=== PATIENT | male | born 1940 | race Caucasian/White ===

== ENCOUNTER 2018-01-30 14:49 | Observation (INO) | payer MEDICARE, BC ==
[2018-01-30 15:38] LABS: #Lymphocytes 0.9 thou/uL (1.20-3.40); #Monocytes 0.4 thou/uL (0.11-0.59); #Neutrophils 3.9 thou/uL (1.40-6.50); %Basophils 0.4 % (0.0-1.0); %Eosinophils 0.7 % (0.0-10.0); %Lymphocytes 17.2 % (21.0-51.0); %Monocytes 7.6 % (0.0-10.0); %Neutrophils 74.2 % (42.0-75.0); Hemoglobin 14.2 g/dL (14.0-18.0); Mean Corpuscular HGB CONC 33.6 g/dL (32.0-36.0); Mean Corpuscular Hemoglobin 31.7 pg (27.0-31.0); Mean Corpuscular Volume 94.2 fL (78.0-98.0); Mean Platelet Volume 8.7 fL (7.4-10.4); Platelet Count 218 thou/uL (130-400); Red Blood Cell (RBC) Count 4.48 mill/uL (4.70-6.10); White Blood Cell (WBC) Count 5.3 thou/uL (4.8-10.8)
[2018-01-30 15:58] LABS: Anion Gap 11 mmol/L (10-20); BUN (Urea Nitrogen) 24 mg/dL (8.4-25.7); Calc. Creatinine Clearance 0 mL/min (70-130); Calcium 9.5 mg/dL (7.8-10.44); Carbon Dioxide 24 mmol/L (23-31); Chloride 110 mmol/L (98-107); Estimated GFR-MDRD 49; Glucose 97 mg/dL (83-110); Potassium 3.9 mmol/L (3.5-5.1); Sodium 141 mmol/L (136-145)
[2018-01-30 18:18] LABS: INR-International Normal Ratio 2.4; Prothrombin Time 25.8 SEC (12.0-14.7)
[2018-01-30] MEDS ORDERED: Pantoprazole 40 MG VIAL ONE (20:06)
[2018-01-30] MEDS ORDERED: Acetaminophen 325 MG TAB PO PRN (20:48)
[2018-01-30] MEDS ORDERED: Ondansetron HCl/PF 4 MG/2 ML Vial IVP PRN (20:48)
[2018-01-30] MEDS ORDERED: HYDROcodone/Acetaminophen 10/325 mg Tablet PO PRN (20:49)
[2018-01-30] MEDS: Sodium Chloride 0.9% 1,000 ML IV SCH (23:03)
[2018-01-30] MEDS: Pantoprazole 80 MG in Sodium Chloride 0.9% 100 ML IVPB SCH (23:08)
[2018-01-31 04:51] VITALS: BMI 23.0
--- NOTE | 2018-01-31 06:11 | HP ---
CODE STATUS: Patient is full code. PRIMARY CARE PHYSICIAN: Dr. Guadalupe. CHIEF COMPLAINT: "I saw some blood in my stool." HISTORY OF PRESENT ILLNESS: This is a 77-year-old male patient with past medical history of metallic aortic valve, patient on chronic anticoagulation with Coumadin for that reason, also liver and kidne y cyst. The patient also has a history of major abdominal bleed following trauma. The patient came to the hospital after noticing blood in the stools for the past 3 days. The patient reported that it was a significant amount, no clear triggers, no alleviating factors. The patient has last colonosco py a long time ago. The patient's chairman & co founder is Dr. Clemens. Symptoms were reported as moderate to s evere. REVIEW OF SYSTEMS: CONSTITUTIONAL: No fever, no chills. The patient reported generalized weakness. RESPIRATORY: No c ough, no sputum production, shortness of breath. CARDIOVASCULAR: No chest pain, palpitations, shortness of breath. GASTROINTESTINAL: The patient has bloody stools, no nausea, no vomiting, no diarrhea or abdominal pa in. HIDE SELECTOR: No dizziness, headache or feeling lightheaded. GENITOURINARY: No burning with urination. EXTREMITIES: No leg swelling. All other systems reviewed were negative except for findings mentioned above. PAST MEDICAL HISTORY: Positive for liver and kidney disease. Metallic aortic valve replacement, on chronic anticoagulation on Coumadin with therapeutic INR, abdominal bleed following trauma, hernia, e nlarged prostate. PAST SURGICAL HISTORY: Aortic mechanical valve replacement. PSYCHIATRIC HISTORY: No psych history. SOCIAL HISTORY: No alcohol, no drugs. No smoking history. Lives at home. ALLERGIES: No known drug allergies. REPORTED MEDICATIONS: Nifedipine, allopurinol, warfarin. PHYSICAL EXAMINATION: VITAL SIGNS: On presentation, blood pressure 150/82, with a heart rate of 84, respiratory rate was 1 7, temperature 98.3, oxygen saturation 93 on room air. GENERAL: The patient is alert, oriented, no acute distress. HEENT: Normocephalic, conjunctivae. Moist oral mucosa. Eyes; anicteric. NECK: No JVD. RESPIRATORY: Bilateral air entry. No rales, no wheezing. Symmetric expansion. CARDIOVASCULAR: Normal rate, regular rhythm, no murmurs, no gallop, no edema. ABDOMEN: Soft, normal bowel sounds. MUSCULOSKELETAL: Baseline range of motion and strength. No tenderness. SKIN: Warm and intact. No pallor, no rash, no redness. NEUROLOGIC: Baseline sensorium. No evidence of any new focal weakness. Baseline speech. Cranial n erves, sensory intact. PSYCHIATRIC: The patient is in a good mood. No anxiety. Oriented, normal judgment. EKG was reviewed and discussed with the performing physician from here. The patient has normal sinus rhythm with a rate of 77, no evidence of any acute ischemic changes, left anterior fascicular block. LABORATORY DATA: Reviewed. The patient has a white count of 5.3, hemoglobin 14.2. Repeat hemoglobi n 13, MCV 94, the platelet count was 218, PT 25.8, INR 2.4, sodium 141, potassium 3.9, chloride 110, carbon dioxide was 24, anion gap 11, BUN 24, creatinine 1.41. In previous admissions, the patient gregory d a creatinine of 1.15, GFR 49, glucose 97, calcium 9.5. ASSESSMENT AND PLAN: The patient will be placed in the hospital for the following medical problems. 1. Lower gastrointestinal bleeding, in a patient with high risk for complications given the history of chronic anticoagulation and ability to stop anticoagulation given the patient having a metallic c prosthetic valve in the aortic valve. We will monitor hemoglobin, Protonix has been given, follow wi th GI that has been consulted. 2. Acute blood loss anemia, the patient has a hemoglobin for 14-13. This is minimal, we will contin ue to monitor, no evidence of any hemodynamic instability. 3. Chronic anticoagulation due to metallic valve, INR was 2.4, supratherapeutic. Once GI bleeding i s fixed, we will need to adjust dosage of Coumadin to keep INR from 2.5-3.5. 4. Acute kidney injury. The patient has creatinine 1.4, on previous admission was 1.1, will hydrate , will monitor kidney function, will adjust treatment as needed. 5. Deep venous thrombosis prophylaxis. The patient is anticoagulated.
[2018-01-31 06:30] LABS: Hemoglobin 12.5 g/dL (14.0-18.0)
[2018-01-31 06:47] LABS: Anion Gap 10 mmol/L (10-20); BUN (Urea Nitrogen) 22 mg/dL (8.4-25.7); Calc. Creatinine Clearance 72 mL/min (70-130); Calcium 8.6 mg/dL (7.8-10.44); Carbon Dioxide 25 mmol/L (23-31); Chloride 113 mmol/L (98-107); Estimated GFR-MDRD 72; Glucose 93 mg/dL (83-110); Potassium 3.6 mmol/L (3.5-5.1); Sodium 144 mmol/L (136-145)
[2018-01-31] MEDS: Pantoprazole 80 MG in Sodium Chloride 0.9% 100 ML IVPB SCH (09:07)
[2018-01-31] MEDS: Allopurinol 300 MG TAB PO SCH (09:08)
[2018-01-31] MEDS: Sodium Chloride 0.9% 1,000 ML IV SCH (09:08)
[2018-01-31 10:56] LABS: Hemoglobin 13.1 g/dL (14.0-18.0)
[2018-01-31 11:09] LABS: PTT 47.9 SEC (22.9-36.1); Prothrombin Time 22.8 SEC (12.0-14.7)
--- NOTE | 2018-01-31 11:54 | PDOC.PN ---
- Subjective Encounter Start Date: 01/31/18 Encounter Start Time: 10:20 Subjective: had bm this am with no blood in it -: large amount of blood in stool yesterday and day before -: no abd pain or nausea, no sob - Objective Resuscitation Status: Resuscitation Status FULL:Full Resuscitation MAR Reviewed: Yes Vital Signs & Weight: Vital Signs (12 hours) Temp Pulse Resp BP Pulse Ox 01/31/18 07:59 98.1 F 66 18 131/73 92 L 01/31/18 04:14 98.7 F 69 16 123/66 93 L Weight Weight 179 lb 6.4 oz I&O: 01/30/18 01/31/18 02/01/18 06:59 06:59 06:59 Intake Total 756 1354 Output Total 700 Balance 56 1354 Result Diagrams: 01/31/18 10:47 01/31/18 05:53 Phys Exam - Physical Examination HEENT: PERRLA, moist MMs Neck: no JVD, supple Respiratory: no wheezing, no rales Cardiovascular: RRR, no significant murmur mech click+ Gastrointestinal: soft, non-tender, no distention, positive bowel sounds Musculoskeletal: no edema, pulses present Neurological: non-focal, moves all 4 limbs Psychiatric: normal affect, A&O x 3 Dx/Plan (1) GI bleed Code(s): K92.2 - GASTROINTESTINAL HEMORRHAGE, UNSPECIFIED Status: Acute Qualifiers: GI bleed type/associated pathology: anorectal hemorrhage Qualified Code(s) : K62.5 - Hemorrhage of anus and rectum (2) h/o diverticulosis Status: Suspected (3) H/O mechanical aortic valve replacement Code(s): Z95.2 - PRESENCE OF PROSTHETIC HEART VALVE Status: Chronic (4) HTN (hypertension) Code(s): I10 - ESSENTIAL (PRIMARY) HYPERTENSION Status: Chronic Qualifiers: Hypertension type: essential hypertension Qualified Code(s): I10 - Essential (primary) hypertension - Plan coumadin held, inr is 2 this am -: likely had diverticular bleed, prev colonoscopy showed ?diverticulosis -: h/h stable, GI consult -: prior echo in 12/2016 ef is 50% -: dc plan per GI advice * . Review of Systems - Medications/Allergies Allergies/Adverse Reactions: Allergies Allergy/AdvReac Type Severity Reaction Status Date / Time No Known Drug Allergies Allergy Verified 01/31/18 03:35 Medications: Current Medications Acetaminophen (Tylenol) 650 mg PO Q4H PRN PRN Reason: Headache/Fever or Pain Hydrocodone Bitart/Acetaminophen (Aldrich 10/325) 1 tab PO Q6H PRN PRN Reason: Mild-Moderate Pain (1-5) Allopurinol (Zyloprim) 300 mg PO DAILY [facility] Last Admin: 01/31/18 09:08 Dose: 300 mg Sodium Chloride (Normal Saline 0.9%) 1,000 mls @ 100 mls/hr IV .Q10H [facility] Last Admin: 01/31/18 09:08 Dose: 1,000 mls Pantoprazole Sodium 80 mg/ (Sodium Chloride) 100 mls @ 10 mls/hr IVPB INF [facility] Last Admin: 01/31/18 09:07 Dose: 100 mls Ondansetron HCl (Zofran) 4 mg IVP Q6H PRN PRN Reason: Nausea/Vomiting Sodium Chloride (Flush - Normal Saline) 10 ml IVF Q12HR [facility] Last Admin: 01/31/18 09:08 Dose: Not Given Sodium Chloride (Flush - Normal Saline) 10 ml IVF PRN PRN PRN Reason: Saline Flush Last Admin: 01/30/18 23:09 Dose: 10 ml
[2018-01-31] MEDS: GoLYTELY 4,000 ml Bottle PO SCH (18:19)
--- NOTE | 2018-01-31 23:43 | CON ---
DATE OF CONSULTATION: 01/31/2018 REASON FOR CONSULTATION: Rectal bleeding. HISTORY OF PRESENT ILLNESS: Mr. Yin is a pleasant 77-year-old gentleman. He is on lifelong antic oagulation for aortic valve replacement. He notes that he was admitted for rectal bleeding. He repo rted that starting last week around has been having some bowel movements with streaks of blo od. This was bright red. It was without pain. Yesterday after buddhism, he had a bowel movement with quite a bit of blood and that was more alarming, has been going on for 4 days. [facility] He denies any bleeding episodes prior to this. His last endoscopies were long time ago. He do es not remember his last colonoscopy. He has had an EGD from the past 10 years. He was found to hav e some small varices which was unclear if these were related to polycystic liver disease and portal h ypertension from this or in some way a complication of previous trauma from accident being kicked by a horse and he was on anticoagulation. In any event, he has had no bleeding over that time and has b een doing pretty well other than a broken hip a few months last year. Here, his hemoglobin has been stable since admission. He has had no further bowel movements. PAST MEDICAL HISTORY: Polycystic liver and kidney disease some mild elevation of ALT greater than AST, significant serologic workup which was negative. He did have questionable abnormalities in the pancreas at one point in time in a year. About 5 years ago, he had an endoscopic ultrasound of the pancreas by Dr. Abhay Weaver at [facility], which was normal. He is on chronic anticoagul ation for an aortic valve replacement in the past. He has history of enlarged prostate, history of b roken hip that was managed by percutaneous screw fixation. Two years ago in 2016, he had a ventral h ernia repair with mesh. REVIEW OF SYSTEMS: Negative for abdominal pain, rectal pain, diarrhea, nausea or vomiting, shortness of breath, chest pain, dyspnea on exertion, rashes, myalgias or arthralgias, changes in strength in the upper and lower extremities, seizures. Skin: No rashes. Genitourinary: Negative dysuria, freq uency, urgency. HOME MEDICATIONS: Warfarin 6 mg alternating with 8 mg, nifedipine 60 mg a day, allopurinol 300 mg a day. PRESENT MEDICATIONS: Tylenol, allopurinol, hydrocodone p.r.n., nifedipine, Zofran, pantoprazole drip and normal saline. PHYSICAL EXAMINATION: GENERAL: Patient is resting comfortably in bed. He is in no distress. VITAL SIGNS: Temperature is 98, pulse 86, blood pressure 119/59. HEENT: Within normal limits. Conjunctivae and sclerae clear. Mucous members are pink and moist. O ropharynx without lesions. NECK: Supple, without any adenopathy. There are no bruits. LUNGS: Clear. HEART: Regular rate and rhythm. There is a mechanical S2 present. ABDOMEN: Soft, nontender. There is a hernia noted in the midline with an umbilical hernia. He also has some massively enlarged liver. EXTREMITIES: No clubbing, cyanosis or edema. RECTAL: Brown stool in the rectal vault. LABORATORY STUDIES: Hemoglobin 13.1, it was 14.2 on admission, was 12.3 on 12/18/2016. Platelets we re 218. INR was 2.0 this morning. Comp metabolic profile was normal. Albumin was 3.7. Liver funct ion is normal except for alkaline phosphatase of 307, BUN and creatinine were 27 and 1.5 today that w ere 22 and 1.0. ASSESSMENT: 1. Rectal outlet bleeding. This is probably hemorrhoidal, although it could have been diverticular. He has not had a colonoscopy in over 10 years and presumably could have had a polyp that also bled, but it does not seem he has anything significant bleeding at this time. The difficulty is he is on chronic anticoagulation for aortic valve. His plastic worker off of that. The other thing in hi s history that he had varices in his EGD noted in the past, presumptively this is related to portal h ypertension from his significant polycystic liver disease. 2. He does have a massively enlarged liver. RECOMMENDATIONS: 1. Stop Protonix drip. 2. EGD and colonoscopy tomorrow. I think these need to be done as an inpatient, as he has really gregory s to be on the blood thinners for his mechanical valve and he does [place] about [place] the [facility].
[2018-02-01 09:16] LABS: INR-International Normal Ratio 1.9; PTT 42.8 SEC (22.9-36.1); Prothrombin Time 21.6 SEC (12.0-14.7)
[2018-02-01] MEDS: GoLYTELY 4,000 ml Bottle PO SCH (11:17)
[2018-02-01] MEDS: NIFEdipine XL 60 MG TAB PO SCH (11:18)
[2018-02-01] MEDS: Allopurinol 300 MG TAB PO SCH (11:18)
[2018-02-01] MEDS ORDERED: PROPOFOL 200 MG/20 ML VIAL ONE (13:39)
[2018-02-01] MEDS ORDERED: Lidocaine 1% PF 5 ML VIAL ONE (13:39)
[2018-02-01] MEDS ORDERED: Fentanyl 100 MCG/2 ML VIAL ONE (16:19)
--- NOTE | 2018-02-01 22:30 | PDOC.PN ---
- Subjective Encounter Start Date: 02/01/18 Encounter Start Time: 08:45 Doing well. no further bleeding. - Objective Resuscitation Status: Resuscitation Status FULL:Full Resuscitation Vital Signs & Weight: Vital Signs (12 hours) Temp Pulse Resp BP Pulse Ox 02/01/18 20:07 98.2 F 68 16 143/67 H 93 L 02/01/18 17:24 98.0 F 64 20 182/82 H 94 L 02/01/18 11:43 98.8 F 67 16 139/73 92 L 02/01/18 11:18 63 Weight Weight 179 lb 6.4 oz I&O: 01/31/18 02/01/18 02/02/18 06:59 06:59 06:59 Intake Total 756 4354 360 Output Total 700 332 Balance 56 4022 360 Result Diagrams: 01/31/18 10:47 01/31/18 05:53 Phys Exam - Physical Examination Constitutional: NAD HEENT: oral pharynx no lesions Neck: no JVD, supple Respiratory: no wheezing, no rales, no rhonchi, clear to auscultation bilateral Cardiovascular: RRR, no significant murmur Gastrointestinal: soft, non-tender, no distention, positive bowel sounds Musculoskeletal: no edema Dx/Plan (1) GI bleed Code(s): K92.2 - GASTROINTESTINAL HEMORRHAGE, UNSPECIFIED Status: Acute Qualifiers: GI bleed type/associated pathology: anorectal hemorrhage Qualified Code(s) : K62.5 - Hemorrhage of anus and rectum (2) H/O mechanical aortic valve replacement Code(s): Z95.2 - PRESENCE OF PROSTHETIC HEART VALVE Status: Chronic (3) HTN (hypertension) Code(s): I10 - ESSENTIAL (PRIMARY) HYPERTENSION Status: Chronic Qualifiers: Hypertension type: essential hypertension Qualified Code(s): I10 - Essential (primary) hypertension (4) h/o diverticulosis Status: Suspected - Plan * Endoscopy pending. Continuing to hold the coumadin. Stable hgb.
--- NOTE | 2018-02-01 23:27 | OP ---
DATE OF PROCEDURE: 02/01/2018 PROCEDURES: Esophagogastroduodenoscopy with biopsy and colonoscopy. PREOPERATIVE DIAGNOSIS: Gastrointestinal bleed on warfarin. OPERATIVE NOTE: Informed consent was obtained from the patient. He was sedated with total intraveno us anesthesia. A bite block was placed and the endoscope was advanced to the second portion of the d uodenum and retroflexion was performed in the stomach. The esophagus had mild grade A erosive esopha gitis in the distal esophagus. There were no significant varices present. The stomach had nonerosiv e erythematous gastritis in the antrum and body. There was some old black heme staining secondary to gastritis. There was external compression in the antrum likely related to the hepatomegaly. The fi rst and second portions of the duodenum were normal. Biopsies were obtained from the stomach to rule out H. pylori. Air was suctioned from the stomach. Patient was turned around. Rectal exam was per formed and was normal. The colonoscope was advanced to the terminal ileum. The mucosa of the termin al ileum was normal. The ileocecal valve and appendiceal orifice were clearly identified. Advanceme nt of the scope was made difficult by the poor prep quality and significant looping. The colon was e xtensively irrigated and a fair colon prep was achieved. There was no bleeding actively and no bleed ing source identified. There was severe diverticulosis in the sigmoid and descending colon. Retrofl ex views in the rectum revealed moderate internal hemorrhoids, which might have been the bleeding medardo rce. IMPRESSION: 1. Nonerosive antral erythematous gastritis, biopsied to rule out Helicobacter pylori. 2. External compression of the antrum likely secondary to the hepatomegaly. 3. Grade A erosive esophagitis. No significant varices were seen. 4. Severe diverticulosis of the sigmoid and descending colon. 5. Moderate internal hemorrhoids, which might have been the bleeding source. 6. Otherwise normal colonoscopy to the terminal ileum with fair colon prep. RECOMMENDATIONS: 1. Okay to restart warfarin. 2. Follow the trend of the CBC. 3. Follow up in the office in 2-[address] Morris. 4. I will sign off. Please call if GI can be of assistance.
[2018-02-02 05:03] LABS: INR-International Normal Ratio 1.9; Prothrombin Time 21.8 SEC (12.0-14.7)
[2018-02-02 05:04] LABS: #Eosinphils 0.1 thou/uL (0.0-0.7); #Lymphocytes 0.9 thou/uL (1.20-3.40); #Monocytes 0.5 thou/uL (0.11-0.59); #Neutrophils 4.7 thou/uL (1.40-6.50); %Basophils 0.4 % (0.0-1.0); %Eosinophils 1.7 % (0.0-10.0); %Lymphocytes 14.9 % (21.0-51.0); %Monocytes 7.3 % (0.0-10.0); %Neutrophils 75.7 % (42.0-75.0); Hemoglobin 11.8 g/dL (14.0-18.0); Mean Corpuscular HGB CONC 32.9 g/dL (32.0-36.0); Mean Corpuscular Hemoglobin 31.3 pg (27.0-31.0); Mean Platelet Volume 8.6 fL (7.4-10.4); PTT 47.5 SEC (22.9-36.1); Platelet Count 158 thou/uL (130-400); RBC Distribution Width 14.9 % (11.5-14.5); Red Blood Cell (RBC) Count 3.77 mill/uL (4.70-6.10); White Blood Cell (WBC) Count 6.2 thou/uL (4.8-10.8)
[2018-02-02] MEDS: NIFEdipine XL 60 MG TAB PO SCH (07:51)
[2018-02-02] MEDS: Allopurinol 300 MG TAB PO SCH (07:51)
[2018-02-02 08:05] VITALS: TEMP 98.5
[2018-02-02 08:16] VITALS: BP 147/73
--- NOTE | 2018-02-02 12:46 | DIS ---
DATE OF ADMISSION: 01/31/2018 DATE OF DISCHARGE: 02/02/2018 DISCHARGE DIAGNOSES: 1. Lower gastrointestinal bleed. 2. Hemorrhoids. 3. Diverticulosis. 4. Minimal gastritis. 5. History of prosthetic aortic valve. 6. History of chronic anticoagulation. 7. History of hypertension. HISTORY: This patient is a 77-year-old male with a history of the prosthetic mechanical aortic valve , requiring chronic anticoagulation with warfarin. The patient presented to the hospital after notic ing bright red blood in the toilet. The patient was largely asymptomatic otherwise. His vital signs were stable. He subsequently was placed in observation. His Coumadin was held and GI was consulted . The patient had no further episodes of bleeding and his hemoglobin remained stable above 11. He r emained asymptomatic. GI did evaluate the patient and performed an EGD and colonoscopy on the . The patient was noted to have very minimal redness in the stomach and biopsies were taken to evaluat e for possible H. pylori. The patient also had diverticulosis of the colon and some internal hemorrh oids, but no evidence of any active bleeding or any lesions of concern. It is a recommendation that the patient be resumed on his Coumadin. Because the procedure had happened relatively late in the da y and the patient was still a bit groggy from the medications, he was kept overnight, and on the day of discharge, the patient continues to do well. PHYSICAL EXAMINATION: VITAL SIGNS: His temperature is 98.5, pulse 62, BP is 147/73-171/79, respirations are 20. He is 92% -93% on room air. GENERAL: He is awake, alert, oriented, pleasant, cooperative. HEART: Regular with a significant 2/6 murmur at the left lower sternal border. LUNGS: Clear bilaterally. ABDOMEN: Soft, nontender, nondistended. He does have a periumbilical ventral hernia. EXTREMITIES: Warm and dry. LABORATORY DATA: Hemoglobin is 11.8. Patient's hemoglobin was initially 14.2 and was stable between the 12 and 13 range throughout the stay. DISPOSITION: The patient is discharged to home. He is to continue with his usual home medications including his warfarin regimen of 6-8 mg as directe d per day, allopurinol 300 mg every day, nifedipine ER 60 mg p.o. every day. He is to continue to gregory ve Coumadin-restricted diet. His activity level is as tolerated. He is to follow up with GI, Dr. Steve robles, next week to follow up on the gastric biopsies. He is to follow up with his primary care provid er, Dr. Rizvi within the next few days. He should have an INR checked again on Wednesday.
== END 2018-02-02 10:17 | disposition home or self-care (01) ==
LOC: ERS 14:49 → 2SW 19:00
PROVIDERS: ADMIT Hospitalist; ATTEND Internal Medicine Gastroenterology
PROC: 0DB68ZX Excision of Stomach, Via Natural or Artificial Opening Endoscopic, Diagnostic (ICD-10-PCS; principal; 2018-02-01)
PROC: 0DJD8ZZ Inspection of Lower Intestinal Tract, Via Natural or Artificial Opening Endoscopic (ICD-10-PCS; 2018-02-01)
DX: K29.71 Gastritis, unspecified, with bleeding (principal); K64.8 Other hemorrhoids; K22.10 Ulcer of esophagus without bleeding; K57.30 Diverticulosis of large intestine without perforation or abscess without bleeding; I10 Essential (primary) hypertension; D62 Acute posthemorrhagic anemia; N17.9 Acute kidney failure, unspecified; Z95.2 Presence of prosthetic heart valve; Z79.01 Long term (current) use of anticoagulants; Z79.899 Other long term (current) drug therapy
CPT/HCPCS: 43239; 45378; 80048 ×2; 82274; 85014 ×3; 85018 ×3; 85025 ×2; 85610 ×4; 85730 ×3; 86850; 86900; 86901; 88305; 88312; 93005; 96365; 96366; 96376; 99285; G0378 ×2; 36415; 96374; A4216; C9113; J2001; J2704; J3010; J7050